=== PATIENT | female | born 1975 | race Caucasian/White ===

== ENCOUNTER → 2017-07-14 | Outpatient (CLI) | payer OTHER ==
[~2017-07-14] MED LIST: CLR10 PO; FLUT0.0529; OXYC5TAB PO; PREN1TAB29 PO
--- NOTE | 2017-07-16 07:48 | MAMMOGRAPHY REPORT ---
BILATERAL FIRST EVER DIGITAL SCREENING MAMMOGRAM TOMOSYNTHESIS WITH CAD: 07/14/2017 CLINICAL HISTORY: Routine screening. Baseline exam. TECHNIQUE: Breast tomosynthesis in addition to standard 2D mammography was performed. Current study was also evaluated with a Computer Aided Detection (CAD) system. COMPARISON: No prior exams were available for comparison. BREAST COMPOSITION: There are scattered areas of fibroglandular density in both breasts. FINDINGS: No suspicious mass, architectural distortion or cluster of microcalcifications is seen. IMPRESSION: ACR BI-RADS CATEGORY 1: NEGATIVE There is no mammographic evidence of malignancy. A 1 year screening mammogram is recommended. The pa tient will receive written notification of the results. Approximately 10% of breast cancers are not detected with mammography. A negative mammographic report should not delay biopsy if a clinically suggestive mass is present. Terri garcía/wood:07/14/2017 15:19:31 Nurse Charge Rn: Jose Maria FERRER)(Susan), [facility] letter sent: Normal 1/2 BI-RADS Code: ACR BI-RADS Category 1: Negative
== END | disposition home or self-care (01) ==
LOC: C.MAMM 09:53
PROVIDERS: ATTEND Physician Assistant Medical
DX: Z12.31 Encounter for screening mammogram for malignant neoplasm of breast (principal)

== ENCOUNTER 2018-11-12 10:29 | Observation (INO) ==
--- NOTE | 2018-11-03 11:57 | PAT Medication Instructions ---
Medication Instructions Date of Service November 03, 2018 Home Medications bupropion HCl [Wellbutrin XL] 300 mg PO QAM fluticasone propionate [Flonase Allergy Relief] 2 spray INTRANASAL DAILY PRN loratadine 10 mg PO QAM multivitamin 1 tab PO QAM pseudoephedrine HCl 30 mg PO HS sertraline [Zoloft] 50 mg PO QAM DO NOT take the morning of surgery loratadine 10 mg PO QAM multivitamin 1 tab PO QAM Take morning of surgery With a small sip of water, OTHERWISE NOTHING TO EAT OR DRINK AFTER MIDNIGHT: bupropion HCl [Wellbutrin XL] 300 mg PO QAM fluticasone propionate [Flonase Allergy Relief] 2 spray INTRANASAL DAILY PRN (if needed) sertraline [Zoloft] 50 mg PO QAM Take evening before surgery fluticasone propionate [Flonase Allergy Relief] 2 spray INTRANASAL DAILY PRN pseudoephedrine HCl 30 mg PO HS Other Notes If you have any questions please call us at [phone] or [phone] or [phone] or [phone]
--- NOTE | 2018-11-03 12:06 | Anesthesiology Consultation ---
Date of Service November 03, 2018 Assessment & Plan (1) Encounter for pre-operative examination: CHECK TEST AM DOS Chart Review Chart Review: Acceptable Risk for Surgery and Patient seen in Pre Admission Testing Teaching & Discussion Instructed NPO after midnight before surgery, except medications with 15 cc of water. Medication instructions provided according to the PAT guidelines. History Surgery Operation Date: 11/12/18 12:10 Proposed Procedures p Robotic Total Laparscopic Hysterectomy - Augie Niño MD, FACOG Height/Weight Height: 5 ft 3 in Weight: 90.3 kg Allergies Allergy/AdvReac Type Severity Reaction Status Date / Time latex Allergy Mild RASH Verified 10/18/18 10:22 Medications Home Medications Medication Instructions Recorded Confirmed Last Taken bupropion HCl [Wellbutrin XL] 300 mg PO QAM 10/18/18 10/18/18 Unknown fluticasone propionate [Flonase 2 spray INTRANASAL DAILY PRN 10/18/18 10/18/18 Unknown Allergy Relief] loratadine 10 mg PO QAM 10/18/18 10/18/18 Unknown multivitamin 1 tab PO QAM 10/18/18 10/18/18 Unknown pseudoephedrine HCl 30 mg PO HS 10/18/18 10/18/18 Unknown sertraline [Zoloft] 50 mg PO QAM 10/18/18 10/18/18 Unknown Past Medical History Medical History Abnormal vaginal bleeding CURRENT ISSUE Anxiety Depression Obesity Seasonal allergies Exercise / Class Metabolic Activity II 4-5 Yardwork/Stairs/Walk up hill Past Surgical History Surgical History Hx of section x 4 Hx of dilation and curettage X2 Past Anesthesia History No Hx of Anesthesia Complications and No Family Hx of Anesthesia Complications History of PONV No Hx of PONV and Hx of Motion Sickness Social History Smoking Status: Never smoker Do You Dip or Chew Tobacco: No Hx Alcohol Use: Yes alcohol intake frequency: holidays/special occasions only Hx Substance Use: No Review of Systems Pt denies any recent chest pain, shortness of breath, palpitations, cough, fever or URI. Physical Exam Vital Signs BP: 117/77 P: 81bpm SPO2: 97% RA T: 98.5 F R: 12 ENMT Mouth: no dental restorations, no chipped teeth and no loose teeth Thyromental Distance: > or= 3.5 Finger Breadths (3.5) Mallampati Class: II Neck + thick neck; neck extension not limited Respiratory normal respiratory effort Auscultation: lungs clear to auscultation bilaterally Cardiovascular Rate/Rhythm: regular rate and regular rhythm Heart Sounds: no murmur Extremities: no edema Testing Laboratory Results 11/03/18 11:51 11/03/18 11:51 Blood Type O Positive 11/03/18 11:51 Antibody Screen NEGATIVE 11/03/18 11:51
[2018-11-03 12:28] LABS: Basophils # (auto) 0.02 K/uL (0-0.2); Basophils % (auto) 0.2 %; Eosinophils # (auto) 0.32 K/uL (0-0.5); Eosinophils % (auto) 3.6 %; Hematocrit (blood only) 37.5 % (37-47); Hemoglobin 12.9 g/dL (12.0-16.0); Immature Granulocytes # (auto) 0.02 K/uL (0.00-0.02); Immature Granulocytes % (auto) 0.2 %; Lymphocytes # (auto) 2.53 K/uL (1.2-3.4); Lymphocytes % (auto) 28.6 %; Mean Corpuscular Hgb Conc 34.4 g/dL (32-36); Mean Corpuscular Volume 92.4 fL (80-100); Mean Platelet Volume 8.5 fL (7.4-10.4); Monocytes # (auto) 0.67 K/uL (0.11-0.59); Monocytes % (auto) 7.6 %; Neutrophils % (auto) 59.8 %; Platelet Count 350 K/uL (130-400); RDW Coefficient of Variation 13.4 % (11.5-14.5); RDW Standard Deviation 45.4 fL (36.4-46.3); Red Blood Count 4.06 M/uL (4.2-5.4); White Blood Count 8.86 K/uL (4.8-10.8)
[2018-11-03 12:35] LABS: BUN Creatinine Ratio 15.7 (10-20); Calcium 9.3 mg/dl (8.5-10.1); Creatinine Clr Calc Pharmacy 117.9 ml/min; Est GFR (African American) 126.5; Est GFR (Non-African American) 109.2; Potassium 3.9 mmol/L (3.5-5.1)
[~2018-11-12 10:29] MED LIST changes: +ACETAMINOPHEN 1000 MG/100 ML IV IV ONE; +CEFAZOLIN 2000MG 2,000 MG/15 ML SYR IV SCH; -CLR10 PO; -FLUT0.0529; +LACTATED RINGER'S 1,000 ML IV SCH; -OXYC5TAB PO; -PREN1TAB29 PO
[2018-11-12] MEDS ORDERED: ONDANSETRON INJ 2 MG/ML 2 ML VIAL IV PRN ×2 (10:52→17:30)
[2018-11-12] MEDS ORDERED: ePHEDrine sulfate 50 MG/ML AMP IV PRN (10:52)
[2018-11-12] MEDS ORDERED: ATROPINE SULFATE 0.1 MG/ML 10ML SYR IV PRN (10:52)
[2018-11-12] MEDS ORDERED: LABETALOL HCL IV 5 MG/ML 20ML IV PRN (10:52)
[2018-11-12] MEDS ORDERED: PHENYLEPHRINE 100MCG/ML 5ML SYR IV PRN (10:52)
[2018-11-12] MEDS ORDERED: HYDROmorphone INJ 1 MG/ML SYRINGE IV PRN (10:52)
[2018-11-12] MEDS ORDERED: MEPERIDINE HCL 25 MG/ML CARP IV PRN (10:52)
[2018-11-12] MEDS ORDERED: SCOPOLAMINE 1.5 MG TDSY TD ONE (11:40)
[2018-11-12] MEDS ORDERED: SCOPOLAMINE 1.5 MG TDSY ONE (11:44)
[2018-11-12] MEDS ORDERED: MIDAZOLAM HCL 1 MG/ML 2ML VIAL ONE (11:55)
[2018-11-12] MEDS ORDERED: PROPOFOL IV EMULSION 10 MG/ML 20 ML VIAL IV ONE (11:55)
[2018-11-12] MEDS ORDERED: LIDOCAINE 2% 20 MG/ML 5 ML SYR IV ONE (11:55)
[2018-11-12] MEDS ORDERED: ROCURONIUM BROMIDE 10 MG/ML 5 ML VIAL ONE (11:55)
[2018-11-12] MEDS ORDERED: fentaNYL citrate 100 MCG/2 ML VIAL ONE (11:55)
--- NOTE | 2018-11-12 12:28 | History & Physical Bridge Note ---
Date of Service November 12, 2018 History & Physical Bridge Note I have examined the patient, reviewed the History & Physical and in the interval since the performance of the History & Physical I have noted the following changes of clinical significance: no changes noted
[2018-11-12] MEDS ORDERED: BUPIVACAINE 0.5 % 5 MG/1 ML MPF 30ML VIAL ONE (12:35)
[2018-11-12] MEDS ORDERED: ONDANSETRON INJ 2 MG/ML 2 ML VIAL ONE ×2 (13:45→13:46)
[2018-11-12] MEDS ORDERED: DEXAMETHASONE SOD INJ 4 MG/ML VIAL ONE (13:45)
[2018-11-12] MEDS ORDERED: NEOSTIGMINE METHYLSULFATE 5 MG/5 ML SYR ONE (13:46)
[2018-11-12] MEDS ORDERED: GLYCOPYRROLATE 0.2 MG/ML VIAL ONE (13:46)
[2018-11-12] MEDS ORDERED: TISSEEL FIBRIN SEALANT 4ML TOP ONE (14:12)
[2018-11-12] MEDS ORDERED: METHYLENE BLUE 0.5% 10 ML VIAL ONE (14:32)
[2018-11-12] MEDS ORDERED: ePHEDrine sulfate 50 MG/ML SYR ONE (14:40)
[2018-11-12] MEDS ORDERED: METHYLENE BLUE 0.5% 10 ML VIAL TOP SCH (14:45)
--- NOTE | 2018-11-12 15:12 | Operative Report ---
Post Operative Report Pre & Post Diagnosis Operation Date: 11/12/18 11:40 Pre-Op Diagnosis: Menometrorrhagia, Dysmenorrhea Post-Op Diagnosis: Menometrorrhagia, Dysmenorrhea Procedure Operation Date: 11/12/18 11:40 Actual Procedures p Robotic Total Laparscopic Hysterectomy, Bilateral Salpingectomy, Cystoscopy - Augie Niño MD, FACOG Surgeon Augie Niño MD, FACOG Dry Starch Operator Dr. Jimenez Estimated Blood Loss 20 Findings Consistent with Post-Op Diagnosis Specimens Uterus bilateral tubes and cervix Description of Procedure Patient given a general anesthetic prepped and draped in dorsal lithotomy position in [facility] bladder drained with a Rivera catheter patient received preoperative antibiotics V care placed into her uterus in the usual fashion and sewn in place gloves were changed into the supraumbilical incision made with scalpel using Pratt technique we did a cutdown into the peritoneal cavity and then placed the blunt-tipped Pratt trocar balloon inflated in the port to allow stabilization CO2 gas used to insufflate the abdomen laparoscope placed in para findings upper abdomen normal no sign of visceral organ injury deep Trendelenburg position then obtained I visualize the pelvis there were some minimal adhesions on the anterior abdominal wall of the omentum the bladder flap was scarred consistent with 4 prior C-sections however no other abnormalities in the pelvis and ovaries appeared normal 2 robotic ports one in the left one in the right placed in the left upper quadrant 11 mm blade was port placed under direct visualization procedure was begun by identifying the ureters on each side is followed in normal course loping tubes were removed in the usual fashion through monopolar shabana and bipolar coagulation and then removed for the excess report supply distal to the left ovary was then coagulated and cut staying well away from the left ureter same process with the round ligament the bladder flap was then identified along with the uterine vessels after skeletization we carefully and sharply dissected away the dense bladder adhesions with the monopolar shabana. The bladder flap was nicely developed at this stage it was unable to coagulate and cut the left uterine vessels these were well away from the left ureter The exact same process was performed on the right side once both vessels have been coagulated and cut we ensured the bladder flap was fully developed monopolar shabana were used to make an anterior colpotomy and then colpotomy was completed uterus was pulled into the vagina to maintain pneumoperitoneum. We then exchanged instruments arm #1 became the [employer] needle parts delivery driver arm #2 became the [employer] grasper 12 inch 20V lock 90-day suture placed to the excess report and cuff was closed from left to right back right to left suture was cut so there was no tail needle removed for the excess report we then performed cystoscopy initially were not able to see good strong jets of urine so we did give a minimal dose of methylene blue was aware the patient is on an SSRI however was unable to visualize the urine I felt this was a prudent step to help visualize. Was then able to see good strong jets of bluish-green diet from the left and right ureter openings there is no sign of damage or no lesions in the bladder cystoscope removed and new Rivera catheter placed the specimen had been removed from the vagina. The Tisseel was then applied to the pelvis 4 mL to the pedicles robot was then undocked instruments removed gas allowed to escape ports removed incisions injected with 0.5% Marcaine fascia closed with 0 Vicryl in the umbilical and left upper quadrant incisions as well as 4-0 subcuticular Monocryl closures of the incisions. The Dermabond was then applied urine was clearish at this stage there was no vaginal bleeding sponge and instrument counts correct I attest to the content of the Intraoperative Record and any orders documented therein. Any exceptions are noted below.
--- NOTE | 2018-11-12 15:34 | Anesthesiology Progress Note ---
Date of Service November 12, 2018 Anesthesia Post Procedure Vital Signs Vital Signs: Temp Pulse Pulse Resp BP Pulse Ox 11/12/18 15:25 88 21 127/70 99 11/12/18 15:15 75 16 119/80 98 11/12/18 15:05 98.1 F 90 16 125/84 96 11/12/18 11:03 98.2 F 89 18 118/80 97 Transfer of Care Handoff Completed per policy Notes Mental Status: alert / awake / arousable and participated in evaluation Patient Amnestic to Procedure: Yes Nausea / Vomiting: adequately controlled Pain: adequately controlled Airway Patency, RR, SpO2: stable & adequate BP & HR: stable & adequate Hydration State: stable & adequate Anesthetic Complications: no major complications apparent and Pt Satisfied with anesthetic care
[2018-11-12] MEDS: fentaNYL citrate 100 MCG/2 ML VIAL IV PRN ×4 (15:42→16:11)
[2018-11-12] MEDS ORDERED: CHECK SCOPOLAMINE PATCH PLACEMENT SCH (16:00)
[2018-11-12] MEDS ORDERED: BISACODYL 10 MG SUPP PR PRN (17:30)
[2018-11-12] MEDS ORDERED: FLUTICASONE PROPIONATE NA SPR 16 GM BTL PRN (17:30)
[2018-11-12] MEDS ORDERED: PROMETHAZINE HCL 12.5 MG in SODIUM CHLORIDE 0.9% 50 ML IV PRN (17:30)
[2018-11-12] MEDS ORDERED: ACETAMINOPHEN 325 MG TAB PO PRN (17:30)
[2018-11-12] MEDS ORDERED: ZOLPIDEM TARTRATE 5 MG TAB PO PRN (17:30)
[2018-11-12] MEDS ORDERED: OXYCODONE/ACETAMINOPHEN 5mg/325mg TAB PO PRN (17:30)
[2018-11-12] MEDS ORDERED: MEPERIDINE HCL 50 MG/ML CARP IV PRN (17:30)
[2018-11-12] MEDS ORDERED: KETOROLAC 30 MG/ML VIAL IV PRN (17:30)
[2018-11-12] MEDS ORDERED: MAGNESIUM HYDROXIDE SUSP 30 ML UDC PO PRN (17:30)
[2018-11-12] MEDS ORDERED: LACTATED RINGER'S 1,000 ML IV SCH (17:30)
[2018-11-12] MEDS: OXYCODONE/ACETAMINOPHEN 5mg/325mg TAB PO PRN (18:28)
[2018-11-12] MEDS: IBUPROFEN 600 MG TAB PO PRN (20:07)
[2018-11-12 20:26] LABS: Hematocrit (blood only) 38.2 % (37-47); Hemoglobin 13.2 g/dL (12.0-16.0)
[2018-11-12] MEDS: DOCUSATE SODIUM 100 MG CAP PO SCH (20:32)
[2018-11-12] MEDS: SIMETHICONE 80 MG CHEW PO PRN (22:13)
[2018-11-13] MEDS: IBUPROFEN 600 MG TAB PO PRN ×2 (03:10→08:42)
[2018-11-13] MEDS: OXYCODONE/ACETAMINOPHEN 5mg/325mg TAB PO PRN ×2 (04:47→08:41)
[2018-11-13] MEDS: SIMETHICONE 80 MG CHEW PO PRN (07:30)
--- NOTE | 2018-11-13 07:41 | Gynecologic Progress Note ---
Date of Service doing well no issues November 13, 2018 Assessment & Plan (1) Menorrhagia: home Physical Exam Constitutional: WD/WN, vitals as above Gastrointestinal (Abdomen): normal bowel sounds, soft, nontender, no hepatosplenomegaly incisions clean ext neg Results & Data Vital Signs (Past 12 Hours) Vital Signs Temp Pulse Pulse Resp BP BP Pulse Ox 11/13/18 03:40 37 C 84 18 115/64 95 11/12/18 23:20 36.8 C 89 18 114/67 95 11/12/18 20:15 36.5 C 107 H 20 117/78 96 Pulse Ox 11/13/18 03:40 95 11/12/18 23:20 95 11/12/18 20:15
[2018-11-13 08:12] LABS: Basophils # (auto) 0.01 K/uL (0-0.2); Basophils % (auto) 0.1 %; Eosinophils # (auto) 0.02 K/uL (0-0.5); Eosinophils % (auto) 0.1 %; Hematocrit (blood only) 35.4 % (37-47); Hemoglobin 12.1 g/dL (12.0-16.0); Immature Granulocytes # (auto) 0.03 K/uL (0.00-0.02); Immature Granulocytes % (auto) 0.2 %; Lymphocytes # (auto) 1.92 K/uL (1.2-3.4); Lymphocytes % (auto) 13.5 %; Mean Corpuscular Hgb Conc 34.2 g/dL (32-36); Mean Corpuscular Volume 90.8 fL (80-100); Mean Platelet Volume 8.3 fL (7.4-10.4); Monocytes # (auto) 0.91 K/uL (0.11-0.59); Monocytes % (auto) 6.4 %; Neutrophils # (auto) 11.31 K/uL (1.4-6.5); Neutrophils % (auto) 79.7 %; Platelet Count 396 K/uL (130-400); RDW Standard Deviation 43.2 fL (36.4-46.3)
[2018-11-13] MEDS: DOCUSATE SODIUM 100 MG CAP PO SCH (08:41)
[2018-11-13] MEDS ORDERED: SERTRALINE HCL 50 MG TABLET PO SCH (09:00)
--- NOTE | 2018-11-15 08:30 | Discharge Summary ---
Date of Service November 15, 2018 patient had a TLH November 13 and was d/c November 14. She was ambulating well, no bleeding. No ext pain. Voiding well. Pain well controlled Admission Exam (Per Admitting) Constitutional WD/WN, vitals as above Respiratory normal respiratory effort, lungs clear to auscultation Cardiovascular RRR, no murmur, no edema Discharge Data Procedures Performed Operation Date: 11/12/18 11:40 Actual Procedures p Robotic Total Laparscopic Hysterectomy, Bilateral Salpingectomy, - Augie Niño MD, FACOG s Cystoscopy - Augie Niño MD, FACOG Hospital Course (1) Menorrhagia: meets criteria home
== END 2018-11-13 09:00 | disposition home or self-care (01) ==
LOC: ASU 10:29 → 4N 10:29